=== PATIENT | female | born 1960 | race Caucasian/White ===

== ENCOUNTER → 2018-12-08 | Outpatient (CLI) | payer BC ==
--- NOTE | 2018-12-09 14:38 | CT ---
EXAMINATION TYPE: CT chest wo/w con DATE OF EXAM: 12/08/2018 COMPARISON: None HISTORY: abnormal cxr CT DLP: 719 mGycm Automated exposure control for dose reduction was used. CONTRAST: CT scan of the chest is performed with IV Contrast, patient injected with 100 mL of Isovue 300. FINDINGS: CT scan of the chest. Exam performed without and subsequently with intravenous contrast. There is no pleural effusion. There are numerous tiny noncalcified nodules adjacent to the pleura in the left lower lobe. These measure up to 7 mm. There is low-density 9 x 4 mm infiltrate in the right upper lobe anteriorly. There is some minimal nodularity at the lung apices up to 8 mm. There is no me diastinal adenopathy. There are calcified granulomata in the mediastinum and at the left pulmonary hi lum. Heart size is normal. There is no pericardial effusion. Bony thorax is intact. There are calcifi ed splenic granulomata. Abdominal aorta is atheromatous. IMPRESSION: Old granulomatous disease. Scattered numerous small nodular peripheral densities probably related to granulomatous disease. I th ink this could be followed conservatively with a repeat CT scan in one year. No suspicious pulmonary density.
== END ==
LOC: RADCTMAIN 17:11
PROVIDERS: ATTEND Internal Medicine Rheumatology
DX: J84.10 Pulmonary fibrosis, unspecified (principal); J98.4 Other disorders of lung
CPT/HCPCS: 71270; Q9967